=== PATIENT | female | born 1940 | race Caucasian/White ===

== ENCOUNTER → 2016-12-28 | Outpatient (CLI) | payer MEDICARE ==
[~2016-12-28] MED LIST: ACET-687 PO; CEPH250S PO; DOCU-24 PO; ESTR0.5T PO; FAMO-75 PO; FAMO20TA5 PO; POLY17PO5 PO; RIVA10TA PO; VANC750P4 IV; ZOLP10TA PO
[2016-12-28 10:20] LABS: HEMATOCRIT 35.2 % (36.0-46.0); HEMOGLOBIN 11.1 g/dL (12.0-15.0); MEAN CELL HGB 24.1 pg (26-34); MEAN CELL HGB CONCENTRATION 31.5 g/dL (33-37); MEAN CORP VOLUME 76.5 fL (78-100); RED CELL DISTRIBUTION WIDTH 21.7 % (11.5-14.5); WHITE BLOOD CELL 8.9 10^3/uL (4.5-11.0)
== END | disposition home or self-care (01) ==
LOC: LAB 09:46
PROVIDERS: ATTEND Physician Assistant
DX: M25.561 Pain in right knee (principal); L53.9 Erythematous condition, unspecified
CPT/HCPCS: 36415; 85027; 85651; 86140

== ENCOUNTER → 2017-01-31 | Outpatient (CLI) | payer MEDICARE | END | disposition home or self-care (01) | LOC: RAD 11:58 | PROVIDERS: ATTEND Orthopaedic Surgery | DX: M25.461 Effusion, right knee (principal) | CPT/HCPCS: 87070; 87075 ==

== ENCOUNTER 2018-04-02 07:40 | Emergency (ER) | payer MEDICARE ==
[~2018-04-02] VITALS: Ht 170.2 cm; Wt 66.7 kg
[~2018-04-02 07:40] MED LIST changes: +DOCU-123 PO; -DOCU-24 PO; -VANC750P4 IV; +VANC750P6 IV
[2018-04-02 08:18] VITALS: BP 134/74
[2018-04-02 08:25] LABS: BASOPHIL % 0.5 % (0.0-0.2); EOSINOPHIL # 0.3 10^3/uL (0.0-0.2); EOSINOPHIL % 3.6 % (0.0-5.0); HEMOGLOBIN 12.5 g/dL (12.0-15.0); LYMPHOCYTES # 1.4 10^3/uL (1.0-4.8); LYMPHOCYTES % 18.5 % (24.0-44.0); MEAN CELL HGB 29.8 pg (26-34); MEAN CELL HGB CONCENTRATION 32.9 g/dL (33-37); MEAN CORP VOLUME 90.7 fL (78-100); MONOCYTES # 0.5 10^3/uL (0.3-0.8); MONOCYTES % 7.4 % (5.0-12.0); NEUTROPHIL # 5.1 10^3/uL (1.8-7.7); NEUTROPHILS % 69.9 % (41.0-85.0); RED CELL DISTRIBUTION WIDTH 14.1 % (11.5-14.5); WHITE BLOOD CELL 7.3 10^3/uL (4.5-11.0)
--- NOTE | 2018-04-02 08:32 | PCM.EKG ---
[facility] Test Date: 2018-04-02 Test Time: 08:35:36 Pat Name: RICHARD DÍAZ Department: Room: Gender: F Rough Rounder Machine: RT : 1940 Requested By: CLINTON MORAES Order Number: [id number] Reading MD: Clinton MORAES Measurements Intervals [place] Rate: 84 P: 78 MI: 188 QRS: 71 QRSD: 84 T: 72 QT: 392 QTc: 463 Interpretive Statements Sinus rhythm with premature supraventricular complexes Voltage criteria for left ventricular hypertrophy Abnormal ECG No previous ECG available for comparison Electronically Signed On 04-02-2018 21:27:45 CDT by Clinton MORAES Please click the below link to view image of tracing.
[2018-04-02 08:41] LABS: CALCIUM 9.2 mg/dL (8.4-10.5); CARBON DIOXIDE 30.6 mmol/L (20.0-32)
[2018-04-02 09:10] VITALS: BP 133/74
--- NOTE | 2018-04-02 09:28 | ER.PDOC ---
General Chief Complaint: General Complaint Stated Complaint: STOMACH ISSUES TRAVEL OUT OF US: No Time seen by MD: 09:26 Source: patient Exam Limitations: no limitations History of Present Illness Initial Comments No bowel movement for 3 days, feels constipated. Severity: moderate Associated Symptoms: denies symptoms Allergies: Coded Allergies: No Known Allergies (Unverified , 10/06/15) Home Meds Reported Medications Vancomycin/0.9 % Sod Chloride (Vanco 750 mg/250 ml-0.9% NaCl) 750 Mg/250 Ml Plast..bag, 750 MG IV BID 09/05/16 Famotidine (PEPCID) 20 Mg Tablet, 1 TAB PO BID for ANTACID, #60 TAB 3 Refills 12/20/15 Acetaminophen With Codeine (TYLENOL WITH CODEINE #4 TABLET) 1 Each Tablet, 1 TAB PO Q6HR PRN for PAIN, #30 TAB 2 Refills 11/12/15 Past Medical History Medical History: hypertension Surgical History: knee LMP (females 10-50): postmenopause Social History Smoking: non-smoker Alcohol Use: none Drug Use: none Review of Systems Constitutional: no symptoms reported EENTM: no symptoms reported Respiratory: no symptoms reported Cardiovascular: no symptoms reported Gastrointestinal: see HPI Genitourinary: no symptoms reported All Other Systems: Reviewed and Negative Physical Exam General Appearance: No Apparent Distress, WD/WN EENT: eyes nml inspection Neck: Non-Tender, Full Range of Motion, Supple, Normal Inspection Respiratory: chest non-tender, lungs clear, normal breath sounds, no respiratory distress CVS: reg rate & rhythm, no murmur, no gallop, pulses nml, nml capillary refill Gastrointestinal: Normal Bowel Sounds, No Organomegaly, No Pulsatile Mass, Non Tender Back: Normal Inspection, No CVA Tenderness Extremities: Normal Range of Motion Neurologic/Psychiatric: 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 hand II-XII NML as Tested Skin: Normal Color Results/Orders Results/Orders Laboratory Tests Test 04/02/18 08:20 White Blood Count 7.3 10^3/uL (4.5-11.0) Red Blood Count 4.19 10^6/uL (4.00-5.20) Hemoglobin 12.5 g/dL (12.0-15.0) Hematocrit 38.0 % (36.0-46.0) Mean Corpuscular Volume 90.7 fL (78-100) Mean Corpuscular Hemoglobin 29.8 pg (26-34) Mean Corpuscular Hemoglobin Concent 32.9 g/dL (33-37) Red Cell Distribution Width 14.1 % (11.5-14.5) Platelet Count 291 10^3/uL (150-400) Mean Platelet Volume 10.0 fL (7.8-11.0) Neutrophils (%) (Auto) 69.9 % (41.0-85.0) Lymphocytes (%) (Auto) 18.5 % (24.0-44.0) Monocytes (%) (Auto) 7.4 % (5.0-12.0) Neutrophils # (Auto) 5.1 10^3/uL (1.8-7.7) Lymphocytes # (Auto) 1.4 10^3/uL (1.0-4.8) Monocytes # (Auto) 0.5 10^3/uL (0.3-0.8) Absolute Immature Granulocyte (auto 0.01 10^3 u/L (0-2) Eosinophils % 3.6 % (0.0-5.0) Basophils % 0.5 % (0.0-0.2) Basophils # 0.0 10^3/uL (0.0-0.1) Eosinophil Count 0.3 10^3/uL (0.0-0.2) Prothrombin Time 11.6 SEC (9.8-11.9) Prothrombin Time INR (Non-Therap) 1.2 Activated Partial Thromboplast Time 33.1 SEC (24.67-30.72) Sodium Level 139 mmol/L (132-145) Potassium Level 4.5 mmol/L (3.6-5.2) Chloride Level 103.0 mmol/L (96-109) Carbon Dioxide Level 30.6 mmol/L (20.0-32) Anion Gap 9.9 Blood Urea Nitrogen 11 mg/dL (7-18) Creatinine 0.93 mg/dL (0.59-1.40) Estimated GFR () 70.6 (>/=60) BUN/Creatinine Ratio 11.0 Glucose Level 158 mg/dL (70-110) Calcium Level 9.2 mg/dL (8.4-10.5) Total Bilirubin 0.6 mg/dL (0.2-1.0) Aspartate Amino Transf (AST/SGOT) 17 U/L (0-35) Alanine Aminotransferase (ALT/SGPT) 9 U/L (12-78) Alkaline Phosphatase 114 U/L (50-136) Total Protein 8.0 g/dL (6.4-8.2) Albumin 3.1 g/dL (3.4-5.0) Globulin 4.9 Amylase Level 30 U/L (25-115) Lipase 61 U/L (114-286) Percent Immature Gran (Cell Imm) 0.10 % (0.00-0.50) Helicobacter pylori Screen POSITIVE (NEGATIVE) Progress Progress X rays abdomen . There is no evidence of bowel obstruction or free air. 2. Constipation. 3. Limited visualization of the right hip. Question of right hip fracture. Recommend formal evaluation. 4. Possible right pleural effusion. Departure Time of Disposition: 10:56 Disposition: 01 HOME, SELF-CARE Impression: Primary Impression: Constipation Qualified Codes: K59.00 - Constipation, unspecified Condition: Stable Additional Instructions: Magnesium Citrate F/U with your PCP in 2-3 days Duration or Time Spent with Pa: 60 mins CLINTON MORAES MD Apr 02, 2018 09:28
[2018-04-02 10:01] VITALS: BP 180/69
--- NOTE | 2018-04-02 10:14 | DIREP ---
PROCEDURE:XR ABDOMEN 2 VIEWS COMPARISON:None. INDICATIONS:constipation TECHNIQUE:Flat and upright views of the abdomen are provided. FINDINGS: BOWEL GAS PATTERN:No bowel dilatation or wall thickening is identified. Generous amount of stool in the colon. CALCIFICATIONS:No significant calcifications are visible. LUNGS/LUNG BASES:The visible lungs appear clear of focal consolidation. There is blunting of the right costophrenic angle which could be due to a pleural effusion. BONES:No acute changes. Limited views of the hips; however, there appears to be a right hip fracture. No visible bony lesion. Degenerative changes to the spine and pelvis. OTHER:No additional findings. CONCLUSION: 1. There is no evidence of bowel obstruction or free air. 2. Constipation. 3. Limited visualization of the right hip. Question of right hip fracture. Recommend formal evaluation. 4. Possible right pleural effusion. Dictated by: Zane Morales M.D. On 04/02/2018 at 10:10 AM
[2018-04-02 11:15] VITALS: BP 134/74
[2018-04-02 11:21] VITALS: BP 134/74
== END 2018-04-02 11:15 | disposition home or self-care (01) ==
LOC: ER 07:40
DX: K59.00 Constipation, unspecified (principal); B96.81 Helicobacter pylori [H. pylori] as the cause of diseases classified elsewhere; I10 Essential (primary) hypertension; Z98.890 Other specified postprocedural states; Z79.2 Long term (current) use of antibiotics; Z79.1 Long term (current) use of non-steroidal anti-inflammatories (NSAID); Z79.899 Other long term (current) drug therapy
CPT/HCPCS: 36415; 74019; 80053; 82150; 83690; 85025; 85610; 85730; 86677; 93005; 99285

== ENCOUNTER 2018-05-27 16:32 | Inpatient (IN) | payer MEDICARE ==
[~2018-05-27] VITALS: Ht 165.1 cm; Wt 53.5 kg
[2018-05-27] MEDS ORDERED: LACTATED RINGERS 1,000 ML ONE (16:59)
[2018-05-27 17:37] LABS: MEAN CELL HGB 28.6 pg (26-34); MEAN CELL HGB CONCENTRATION 31.8 g/dL (33-37); MEAN CORP VOLUME 89.8 fL (78-100); MEAN PLATELET VOLUME 9.6 fL (7.8-11.0); RED CELL DISTRIBUTION WIDTH 14.1 % (11.5-14.5); WHITE BLOOD CELL 12.6 10^3/uL (4.5-11.0)
[2018-05-27 17:42] VITALS: BP 132/72
[2018-05-27 17:53] LABS: CALCIUM 9.5 mg/dL (8.4-10.5); CARBON DIOXIDE 29.8 mmol/L (20.0-32)
--- NOTE | 2018-05-27 18:14 | NUR ---
ADMISSIONS COMPLETED AT THIS TIME RLE LEFT WRAPPED DUE TO DR. MORAN DRAINING KNEE AND WRAPPING PRIOR TO ADMISSION
[2018-05-27] MEDS: LACTATED RINGERS 1,000 ML IV SCH (18:40)
[2018-05-27] MEDS ORDERED: AMBIEN PO PRN (19:00)
[2018-05-27] MEDS ORDERED: ULTRAM PO PRN (19:00)
[2018-05-27] MEDS ORDERED: LACTATED RINGERS 1,000 ML IV SCH (19:00)
--- NOTE | 2018-05-27 19:13 | HPH ---
ADMIT DATE: 05/27/2018 CHIEF COMPLAINT: Painful right knee. HISTORY OF PRESENT ILLNESS: The patient is a 77-year-old female who has been complaining of pain and swelling about the right knee over the last 5-7 days. The patient had a total knee arthroplasty several years ago that subsequently got infected. The patient has been living with the infection on basically suppressive antibiotic therapy and was doing well until several months ago when she just stopped taking her antibiotics on her own. The patient denies any fever or chills. The patient's knee has gotten red and swollen over the last 5-7 days. In the past, the patient has been on clindamycin. PAST MEDICAL HISTORY: Chronic right knee infection. PAST SURGICAL PROCEDURES: Include hysterectomy, right total knee arthroplasty, right total knee incision and drainage and debridement, and cholecystectomy. FAMILY HISTORY: The patient's family history is unknown. ALLERGIES: The patient has no known drug allergies. SOCIAL HISTORY: She lives at home by herself and is normally a household ambulator with a cane. The patient does not smoke or drink. REVIEW OF SYSTEMS: Negative for chest pain, shortness of breath, nausea, vomiting, melena, hematochezia, dysuria, hematuria, fever, chills, or weight loss. PHYSICAL EXAMINATION: GENERAL: Shows that she is 5 feet 4 inches and weighs 115 pounds. HEENT: Within normal limits for her age. CHEST: Clear to auscultation. HEART: Regular rate and rhythm, no murmur. ABDOMEN: Soft, nontender, good bowel sounds. EXTREMITIES: The right knee has a healed anterior incision. She has swelling about the anteromedial portion of her knee with some fluctuance. There is redness extending from the patella down to the distal third of her tibia. She has full extension of the knee in about 30-40 degrees of flexion, good medial and lateral stability. NEUROLOGICAL: She is awake and alert and oriented x 3. IMAGING STUDIES: The patient's x-rays show question of osteomyelitis about the tibial component. ASSESSMENT: Infected right total knee arthroplasty. PLAN: The patient will be admitted for IV antibiotics. The area of flexion was aspirated of about 10 mL of purulent material. We will send this to the lab for Gram stain as well as C and S. The patient will be monitored on a daily basis. I will consult the hospitalist. Braydon Goldberg MD DR: AUNG/kael JOB# [id number]
[2018-05-27] MEDS ORDERED: VANCOMYCIN HCL 1 GM ONE (20:19)
[2018-05-27] MEDS ORDERED: NS 250ML 250 ML IV ONE (20:20)
[2018-05-27] MEDS: ULTRAM PO PRN (20:25)
[2018-05-27] MEDS: VANCOMYCIN HCL 1 GM in NS 250ML 250 ML IV SCH (20:26)
[2018-05-27] MEDS ORDERED: VANCOMYCIN HCL IV SCH (21:00)
[2018-05-27] MEDS ORDERED: NS IV SCH (21:00)
[2018-05-28 01:31] VITALS: BP 149/81
[2018-05-28] MEDS: LACTATED RINGERS 1,000 ML IV SCH ×3 (05:32→22:49)
[2018-05-28 05:47] VITALS: BP 147/81
[2018-05-28 08:35] VITALS: BP 155/91
--- NOTE | 2018-05-28 09:32 | PRM.PN ---
Subjective Subjective Date: May 28, 2018 Time: 09:30 Subjective Pain better this am Afebrile Gram stain = G+ cocci Right leg with less erythema and swelling Cont with Vancomycin Needs PICC line Patient History: Diabetes mellitus G8 BROTHER, , Age:60 years and older No known health problems 32 MOTHER, , Age:78 33 FATHER, , Age:84 G8 BROTHER G8 BROTHER G8 BROTHER, , Age:60 years and older G8 SISTER 19 CHILD 19 CHILD Unknown VTE VTE Risk Total Score: >5 VTE Risk Score VTE Risk: Score 0-1 = Low Risk (Aggressive mobilization; early ambulation; no VTE prophylaxis required) Score 2: Moderate Risk (Intermittent/Pneumatic Compression Device OR Lovenox/Heparin/Coumadin) Score 3-4: High Risk (Intermittent/Pneumatic Compression Device AND Lovenox/Heparin/Coumadin) Score > or =5: Highest Risk (Intermittent/Pneumatic Compression Device AND Lovenox/Heparin/Coumadin) Review of Systems Allergies: Coded Allergies: No Known Allergies (Unverified , 10/06/15) Scheduled PRN Acetaminophen With Codeine (Tylenol With Codeine #4 Tablet), 1 TAB PO Q6HR PRN for PAIN, (Reported) Discontinued Medications Famotidine (Pepcid), 1 TAB PO BID, (Reported) Discontinued Reason: No Longer Taking Vancomycin/0.9 % Sod Chloride (Vanco 750 mg/250 ml-0.9% NaCl), 750 MG IV BID, ( Reported) Discontinued Reason: No Longer Taking Objective Vitals and I/O Vital Sign - Last 24 Hours 05/27/18 05/27/18 05/27/18 05/27/18 17:39 17:42 20:14 20:14 Temp 98.4 98.4 Pulse 87 87 Resp B/P (MAP) 132/72 (92) Pulse Ox 95 95 95 O2 Delivery Room Air Room Air Room Air 05/28/18 05/28/18 05/28/18 05/28/18 01:31 03:44 05:47 08:35 Temp 98.4 97.8 98.0 98.4 97.8 98.0 Pulse 82 93 78 Resp 18 B/P (MAP) 149/81 (103) 147/81 (103) 155/91 (112) Pulse Ox 95 95 95 O2 Delivery Room Air Room Air Room Air Room Air Intake and Output 05/27/18 05/27/18 05/28/18 15:00 23:00 07:00 Intake Total 240 ml Balance 240 ml Course Sepsis Screening Results: Posi: NEGATIVE Sepsis Qualifier/Stage: NO DEFINITE RISK Vitals & review Data Vital Sign - Last 24 Hours 05/27/18 05/27/18 05/27/18 05/27/18 17:39 17:42 20:14 20:14 Temp 98.4 98.4 Pulse 87 87 Resp 18 B/P (MAP) 132/72 (92) Pulse Ox 95 95 95 O2 Delivery Room Air Room Air Room Air 05/28/18 05/28/18 05/28/18 05/28/18 01:31 03:44 05:47 08:35 Temp 98.4 97.8 98.0 98.4 97.8 98.0 Pulse 82 93 78 Resp 18 B/P (MAP) 149/81 (103) 147/81 (103) 155/91 (112) Pulse Ox 95 95 95 O2 Delivery Room Air Room Air Room Air Room Air Intake and Output 05/27/18 05/27/18 05/28/18 15:00 23:00 07:00 Intake Total 240 ml Balance 240 ml Laboratory Tests Test 05/27/18 17:27 White Blood Count 12.6 10^3/uL Red Blood Count 4.20 10^6/uL Hemoglobin 12.0 g/dL Hematocrit 37.7 % Mean Corpuscular Volume 89.8 fL Mean Corpuscular Hemoglobin 28.6 pg Mean Corpuscular Hemoglobin Concent 31.8 g/dL Red Cell Distribution Width 14.1 % Platelet Count 397 10^3/uL Mean Platelet Volume 9.6 fL Erythrocyte Sedimentation Rate 113 mm/hr Sodium Level 137 mmol/L Potassium Level 3.9 mmol/L Chloride Level 98.0 mmol/L Carbon Dioxide Level 29.8 mmol/L Anion Gap 13.1 Blood Urea Nitrogen 13 mg/dL Creatinine 0.83 mg/dL Estimated GFR () 80.4 BUN/Creatinine Ratio 15.0 Glucose Level 159 mg/dL Calcium Level 9.5 mg/dL Total Bilirubin 0.4 mg/dL Aspartate Amino Transf (AST/SGOT) 17 U/L Alanine Aminotransferase (ALT/SGPT) 10 U/L Alkaline Phosphatase 115 U/L C-Reactive Protein 11.66 mg/dL Total Protein 9.0 g/dL Albumin 3.3 g/dL Globulin 5.7 Current Medications Medications (Trade) Dose Ordered Sig/Tara PRN Reason Start Time Stop Time Status Last Admin Docusate Sodium (Colace) 100 mg DAILY 05/28/18 09:00 06/27/18 08:59 Famotidine (Pepcid) 20 mg DAILY 05/28/18 09:00 06/27/18 08:59 Tramadol HCl (Ultram) 50 mg Q6H PRN MILD PAIN 05/27/18 19:00 06/26/18 18:59 Tramadol HCl (Ultram) 100 mg Q6H PRN SEVERE PAIN 05/27/18 19:00 06/26/18 18:59 05/27/18 20:25 Vancomycin HCl 1 gm/Sodium Chloride 250 ml @ 175 mls/hr Q12H 05/27/18 19:00 05/28/18 20:26 05/27/18 20:26 Zolpidem Tartrate (Ambien) 5 mg HS PRN INSOMNIA 05/27/18 19:00 06/26/18 18:59 05/27/18 20:26 BELINDA MORAN MD May 28, 2018 09:32
[2018-05-28] MEDS: COLACE PO SCH (09:55)
[2018-05-28] MEDS: PEPCID PO SCH (09:55)
[2018-05-28] MEDS: VANCOMYCIN HCL 1 GM in NS 250ML 250 ML IV SCH ×2 (09:55→22:51)
--- NOTE | 2018-05-28 10:45 | NUR ---
BEHAVIOR PT YELLING AT NURSE STATING "GO NEXT DOOR AND GET MY THAT PRINCE . I'M FIXING TO RIP OUT THIS IV IF YOU DONT HOOK ME RIGHT NOW. I'M GOING TO GO DOWN THE THE NEXT AND TALK TO THE DOCTOR AND NURSE PRACTITIONER." ATTEMPTED TO REORIENT PT. KIARA. Dmitry TOWNSEND RN NOTIFIED OF BEHAVIOR AND PTS REQUEST FOR ANOTHER NURSE. PTS RIGHT KNEE CLEANSED WITH WOUND CLEANSER AND WRAPPED WITH MARIA LUISA WRAP.
--- NOTE | 2018-05-28 11:28 | NUR ---
REPORT REPORT GIVEN TO Orlando CHOU LVN AND RELINQUISHED CARE
--- NOTE | 2018-05-28 11:30 | NUR ---
REPORT RECEIVED REPORT FROM JIMBO BLANKENSHIP. ASSUMED CARE FOR PATIENT AT THIS TIME.
[2018-05-28 11:46] VITALS: BP 138/68
--- NOTE | 2018-05-28 15:00 | NUR ---
DISCHARGE PLAN CM VISITED WITH PATIENT REGARDING DISCHARGE PLAN AND NEEDS. PATIENT LIVES AT HOME WITH ALONE. SHE IS FAIRLY INDEPENDENT AND USES A WALKER FOR AMBULATING. 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 CHOICE LETTER PRESENTED, SIGNED, AND PLACED IN PATIENT'S CHART. PATIENT DENIES NEED FOR ANY ADDITIONAL RESOURCES AT THIS TIME. CLINICAL INFORMATION FAXED TO [facility]. DWAINE PICHARDO NOTIFIED OF REFERRAL. CM DEPT WILL CONTINUE TO MONITOR DISCHARGE NEEDS.
[2018-05-28 17:23] VITALS: BP 157/65
--- NOTE | 2018-05-28 18:09 | PRM.CONS ---
Consultation History of Present Illness History of Patient Comments Patient has no new complaints today. She was a little confused and talkative. 77-year-old female that was admitted to orthopedic service because of right knee infection. Patient had a total knee arthroplasty several years ago subsequently got infected. She had been on clindamycin for suppressive antibiotic therapy for some time but recently stopped taking the antibiotic and had an escalation in the infection of the knee. She presented to orthopedic service and was admitted. She is currently on antibiotics while in the swelling in the knees being monitored. During my encounter today with the patient, patient's son was present, and so was patient's [id number]. Patient was a little talkative, may be confused. Son states she has dementia and gets confused sometimes. She takes temazepam 25 mg at bedtime at home. Allergies: No known drug allergies Past medical history: Chronic right knee infection Past surgical history: Hysterectomy Right total knee arthroplasty Right total knee slenderness and debridement Cholecystectomy Family and social history: Patient lives at home alone. Does not smoke Does not drink. Objective Vitals and I/O Vital Sign - Last 24 Hours 05/27/18 05/27/18 05/28/18 05/28/18 20:14 20:14 01:31 03:44 Temp 98.4 98.4 Pulse 87 82 Resp 18 18 18 B/P (MAP) 149/81 (103) Pulse Ox 95 95 95 O2 Delivery Room Air Room Air Room Air 05/28/18 05/28/18 05/28/18 05/28/18 05:47 08:35 11:17 11:24 Temp 97.8 98.0 97.8 98.0 Pulse 93 78 92 Resp 18 18 16 B/P (MAP) 147/81 (103) 155/91 (112) Pulse Ox 95 95 98 O2 Delivery Room Air Room Air Room Air Room Air FiO2 21 05/28/18 05/28/18 11:46 17:23 Temp 98.6 99.4 98.6 99.4 Pulse 78 95 Resp 18 18 B/P (MAP) 138/68 (91) 157/65 (95) Pulse Ox 98 97 O2 Delivery Room Air Room Air Intake and Output 05/27/18 05/27/18 05/28/18 15:00 23:00 07:00 Intake Total 240 ml Balance 240 ml Current Medications Medications (Trade) Dose Ordered Sig/Tara Route PRN Reason Start Time Stop Time Status Last Admin Dose Admin Vancomycin HCl 0.75 gm/Sodium Chloride 250 ml @ 175 mls/hr Q12HR IV 05/27/18 21:00 05/27/18 21:00 DC Tramadol HCl (Ultram) 50 mg Q6H PRN PO MILD PAIN 05/27/18 19:00 06/26/18 18:59 Tramadol HCl (Ultram) 100 mg Q6H PRN PO SEVERE PAIN 05/27/18 19:00 06/26/18 18:59 05/27/18 20:25 Zolpidem Tartrate (Ambien) 5 mg HS PRN PO INSOMNIA 05/27/18 19:00 06/26/18 18:59 05/27/18 20:26 Docusate Sodium (Colace) 100 mg DAILY PO 05/28/18 09:00 06/27/18 08:59 05/28/18 09:55 Famotidine (Pepcid) 20 mg DAILY PO 05/28/18 09:00 06/27/18 08:59 05/28/18 09:55 Vancomycin HCl 1 gm/Sodium Chloride 250 ml @ 175 mls/hr Q12H IV 05/27/18 19:00 05/28/18 20:26 05/28/18 09:55 Vancomycin HCl 1 ml @ ud STK-MED ONCE .ROUTE 05/27/18 20:19 05/27/18 20:21 DC Sodium Chloride 250 ml @ ud STK-MED ONCE IV 05/27/18 20:20 05/27/18 20:22 DC General: Alert, No acute distress, Other (confused) HEENT: Atraumatic, PERRLA Neck: Supple, No thyromegaly Lungs: Clear to auscultation, Normal air movement Heart: Regular rate, Normal S1, Normal S2 Abdomen: Normal bowel sounds, Soft Extremities: Other (right knee is wrapped with Black bandage by orthopedics. 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 TESTER : 1940 BED: DIS : STATUS: REG REF TLOC: SPEC #: [id number] BECKA: 07/28/16 STATUS: COMP REQ #: [id number] RECD: 07/28/[address]: BEBO CANALES NP SOURCE: OTHER ENTR: 07/28/[address]: RAY MOBLEY MD SPDC: OTHER ORDERED: WC & GS Procedure Result GRAM STAIN Final WHITE BLOOD CELLS RARE GRAM POSITIVE COCCI RARE EPITHELIAL CELLS FEW WOUND CULTURE Final Organism 1 STAPHYLOCOCCUS EPIDERMIDIS PRELIMINARY REPORT NO GROWTH AT 14 HOURS 2ND PRELIMINARY REPORT GRAM POSITIVE COCCI STAPH LIKE RARE NUMBERS ONLY FROM THIO AT 36 HOURS FINAL REPORT STAPH EPIDERMIDIS As of 08/01/16 1449: Positive culture for STAPHYLOCOCCUS EPIDERMIDIS and patient is not on any antibiotic therapy. CONTINUED ON NEXT PAGE LAB FINAL SITE ID: [facility] RUN DATE: 08/18/16 [facility] *LIVE* PAGE 2 RUN TIME: 1625 Specimen Inquiry LAB FINAL SITE ID: [facility] SPEC: [id number] PATIENT: RICHARD DÍAZ [id number] ( Continued) Procedure Result WOUND CULTURE Final (continued) S EPIDERMI M.I.C. RX --------- --- * AMOXACILLIN/CLAVULANATE <=4/2 R * AMPICILLIN 8 R * AMPICILLIN/SULBACTAM <=8/4 R * CEFTRIAXONE <=8 R * CIPROFLOXACIN <=1 S * CLINDAMYCIN <=0.5 S * ERYTHROMYCIN >4 R * GENTAMICIN <=4 S * LEVOFLOXACIN <=1 S * MOXIFLOXACIN <=0.5 S * OXACILLIN >2 R * PENICILLIN >8 R * RIFAMPIN <=1 S * TETRACYCLINE <=4 S * TRIMETHOPRIM/SULFAMETHOXAZOLE >2/38 R * VANCOMYCIN 2 S Medication Reconciliation Scheduled PRN Acetaminophen With Codeine (Tylenol With Codeine #4 Tablet), 1 TAB PO Q6HR PRN for PAIN, (Reported) Discontinued Medications Famotidine (Pepcid), 1 TAB PO BID, (Reported) Discontinued Reason: No Longer Taking Vancomycin/0.9 % Sod Chloride (Vanco 750 mg/250 ml-0.9% NaCl), 750 MG IV BID, ( Reported) Discontinued Reason: No Longer Taking Subjective Subjective Date: May 28, 2018 Time: 18:07 Patient History: Diabetes mellitus G8 BROTHER, , Age:60 years and older No known health problems 32 MOTHER, , Age:78 33 FATHER, , Age:84 G8 BROTHER G8 BROTHER G8 BROTHER, , Age:60 years and older G8 SISTER 19 CHILD 19 CHILD Unknown Plan Plan assessment: Infected right knee arthroplasty Moderate dementia Insomnia GERD plan: I agree with vancomycin. Wound culture from 08/2016 as above caused by staph epidermidis.(MRSE) When necessary pain medications The son tells me that patient does well with temazepam 25 mg at bedtime. Consider changing Ambien to temazepam. Start patient on nocturnal Zyprexa also. GI prophylaxis with famotidine DVT prophylaxis LAYNE REMY DO May 28, 2018 18:09
--- NOTE | 2018-05-28 18:56 | NUR ---
REPORT REPORT RECEIVED FROM DAY SHIFT. ASSUMED CARE OF PATIENT.
--- NOTE | 2018-05-28 18:56 | NUR ---
REPORT REPORT GIVEN TO JIMBO MADRID. RELINQUISHED CARE FOR PATIENT AT THIS TIME.
[2018-05-28 18:57] LABS: BILIRUBIN,URINE NEGATIVE (NEGATIVE); UROBILINOGEN,URINE NORMAL (NEGATIVE)
[2018-05-28 18:58] LABS: APPEARANCE,URINE HAZY (CLEAR); UA COLOR STRAW (YELLOW)
[2018-05-28 20:30] VITALS: BP 149/75
--- NOTE | 2018-05-28 21:00 | NUR ---
EKG REFUSAL ADVISED BY RT THAT PATIENT HAS REFUSED EKG. PATIENT STATES "I'M OLD AND DON'T WANT THAT EXTRA STUFF."
[2018-05-28] MEDS: ZYPREXA ZYDIS SL SCH (22:49)
--- NOTE | 2018-05-29 01:00 | NUR ---
FALL PATIENT CALLED OUT FOR HELP AND THIS NURSE ENTERED THE ROOM, PATIENT WAS LYING ON THE FLOOR NEXT TO THE BED. PATIENT STATES, "I WAS TRYING TO GET TO THE RESTROOM, BUT MY FEET SLIPPED FROM UNDER ME AND I SLID TO THE FLOOR." PATIENT HAS YELLOW NON SLIP SOCKS ON AND FALL BAND IS INTACT. CALL LIGHT WAS WITHIN REACH; HOWEVER PATIENT HAS DEMENTIA AND ATTEMPTED TO GET UP UNASSISTED. PATIENT HAD BEEN EDUCATED ABOUT USE OF CALL LIGHT FOR ASSISTANCE. REINFORCEMENT NEEDED. VITALS TAKEN AND PATIENT ASSISTED TO BATHROOM AND BACK TO BED. NO S/S OF DISTRESS NOTED AND NO INJURY NOTED. BED IS LOCKED IN LOW POSITION WITH SIDE RAILS UP X2. TABLE AND CALL LIGHT ARE WITHIN REACH AND BED ALARM IS ON. PATIENT DENIES ANY NEEDS AT THIS TIME.
[2018-05-29 01:10] VITALS: BP 129/64
--- NOTE | 2018-05-29 08:00 | NUR ---
Status assisted patient to the bathroom to void.
[2018-05-29 08:09] VITALS: BP 145/64
--- NOTE | 2018-05-29 08:42 | PRM.PN ---
Subjective Subjective Date: May 29, 2018 Time: 08:39 Subjective No complaints this am Afebrile Cultures show no growth so far Still has some erythema on distal leg Cont with IV vanco Patient History: Diabetes mellitus G8 BROTHER, , Age:60 years and older No known health problems 32 MOTHER, , Age:78 33 FATHER, , Age:84 G8 BROTHER G8 BROTHER G8 BROTHER, , Age:60 years and older G8 SISTER 19 CHILD 19 CHILD Unknown VTE VTE Risk Total Score: >5 VTE Risk Score VTE Risk: Score 0-1 = Low Risk (Aggressive mobilization; early ambulation; no VTE prophylaxis required) Score 2: Moderate Risk (Intermittent/Pneumatic Compression Device OR Lovenox/Heparin/Coumadin) Score 3-4: High Risk (Intermittent/Pneumatic Compression Device AND Lovenox/Heparin/Coumadin) Score > or =5: Highest Risk (Intermittent/Pneumatic Compression Device AND Lovenox/Heparin/Coumadin) Review of Systems Allergies: Coded Allergies: No Known Allergies (Unverified , 10/06/15) Scheduled PRN Acetaminophen With Codeine (Tylenol With Codeine #4 Tablet), 1 TAB PO Q6HR PRN for PAIN, (Reported) Discontinued Medications Famotidine (Pepcid), 1 TAB PO BID, (Reported) Discontinued Reason: No Longer Taking Vancomycin/0.9 % Sod Chloride (Vanco 750 mg/250 ml-0.9% NaCl), 750 MG IV BID, ( Reported) Discontinued Reason: No Longer Taking Objective Vitals and I/O Vital Sign - Last 24 Hours 05/28/18 05/28/18 05/28/18 05/28/18 11:17 11:24 11:46 17:23 Temp 98.6 99.4 98.6 99.4 Pulse 92 78 95 Resp B/P (MAP) 138/68 (91) 157/65 (95) Pulse Ox 98 98 97 O2 Delivery Room Air Room Air Room Air Room Air FiO2 21 05/28/18 05/28/18 05/28/18 05/29/18 20:30 20:30 21:30 01:10 Temp 98.7 98.6 98.7 98.6 Pulse 87 95 102 Resp B/P (MAP) 149/75 (99) 129/64 (85) Pulse Ox 99 97 93 O2 Delivery Room Air Room Air Room Air Room Air 05/29/18 08:09 Temp 98.0 98.0 Pulse 90 Resp 18 B/P (MAP) 145/64 (91) Pulse Ox 95 O2 Delivery Room Air Intake and Output 05/28/18 05/28/18 05/29/18 15:00 23:00 07:00 Intake Total 222 ml 240 ml Output Total 900 ml Balance 222 ml -900 ml 240 ml Course Sepsis Screening Results: Posi: NEGATIVE Sepsis Qualifier/Stage: NO DEFINITE RISK Vitals & review Data Vital Sign - Last 24 Hours 05/27/18 05/27/18 05/27/18 05/27/18 17:39 17:42 20:14 20:14 Temp 98.4 98.4 Pulse 87 87 Resp 18 B/P (MAP) 132/72 (92) Pulse Ox 95 95 95 O2 Delivery Room Air Room Air Room Air 05/28/18 05/28/18 05/28/18 05/28/18 01:31 03:44 05:47 08:35 Temp 98.4 97.8 98.0 98.4 97.8 98.0 Pulse 82 93 78 Resp 18 B/P (MAP) 149/81 (103) 147/81 (103) 155/91 (112) Pulse Ox 95 95 95 O2 Delivery Room Air Room Air Room Air Room Air Intake and Output 05/27/18 05/27/18 05/28/18 15:00 23:00 07:00 Intake Total 240 ml Balance 240 ml Laboratory Tests Test 05/27/18 17:27 White Blood Count 12.6 10^3/uL Red Blood Count 4.20 10^6/uL Hemoglobin 12.0 g/dL Hematocrit 37.7 % Mean Corpuscular Volume 89.8 fL Mean Corpuscular Hemoglobin 28.6 pg Mean Corpuscular Hemoglobin Concent 31.8 g/dL Red Cell Distribution Width 14.1 % Platelet Count 397 10^3/uL Mean Platelet Volume 9.6 fL Erythrocyte Sedimentation Rate 113 mm/hr Sodium Level 137 mmol/L Potassium Level 3.9 mmol/L Chloride Level 98.0 mmol/L Carbon Dioxide Level 29.8 mmol/L Anion Gap 13.1 Blood Urea Nitrogen 13 mg/dL Creatinine 0.83 mg/dL Estimated GFR () 80.4 BUN/Creatinine Ratio 15.0 Glucose Level 159 mg/dL Calcium Level 9.5 mg/dL Total Bilirubin 0.4 mg/dL Aspartate Amino Transf (AST/SGOT) 17 U/L Alanine Aminotransferase (ALT/SGPT) 10 U/L Alkaline Phosphatase 115 U/L C-Reactive Protein 11.66 mg/dL Total Protein 9.0 g/dL Albumin 3.3 g/dL Globulin 5.7 Current Medications Medications (Trade) Dose Ordered Sig/Tara PRN Reason Start Time Stop Time Status Last Admin Docusate Sodium (Colace) 100 mg DAILY 05/28/18 09:00 06/27/18 08:59 Famotidine (Pepcid) 20 mg DAILY 05/28/18 09:00 06/27/18 08:59 Tramadol HCl (Ultram) 50 mg Q6H PRN MILD PAIN 05/27/18 19:00 06/26/18 18:59 Tramadol HCl (Ultram) 100 mg Q6H PRN SEVERE PAIN 05/27/18 19:00 06/26/18 18:59 05/27/18 20:25 Vancomycin HCl 1 gm/Sodium Chloride 250 ml @ 175 mls/hr Q12H 05/27/18 19:00 05/28/18 20:26 05/27/18 20:26 Zolpidem Tartrate (Ambien) 5 mg HS PRN INSOMNIA 05/27/18 19:00 06/26/18 18:59 05/27/18 20:26 BELINDA MORAN MD May 29, 2018 08:42
[2018-05-29] MEDS: LACTATED RINGERS 1,000 ML IV SCH ×2 (08:46→21:05)
[2018-05-29] MEDS: COLACE PO SCH (08:46)
[2018-05-29] MEDS: PEPCID PO SCH (08:46)
--- NOTE | 2018-05-29 10:00 | NUR ---
Offered to help patient to the chair to finished breakfast, patient refused and stated,"I just want to go back to sleep and be left alone".
[2018-05-29 12:47] VITALS: BP 148/59
[2018-05-29] MEDS: VANCOMYCIN HCL 1 GM in NS 250ML 250 ML IV SCH (15:42)
--- NOTE | 2018-05-29 16:00 | NUR ---
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 MED SURG NURSING CAN CALL REPORT ANYTIME TO [facility] AND ARRANGE TRANSPORTATION WITH FACILITY. MED SURG CHARGE NURSE Sherri TOWNSEND RN NOTIFIED. NO FURTHER CM OR DISCHARGE NEEDS KNOWN @ THIS TIME.
[2018-05-29 17:20] VITALS: BP 114/44
[2018-05-29 20:30] VITALS: BP 127/50
[2018-05-29] MEDS: ZYPREXA ZYDIS SL SCH (21:05)
[2018-05-30] VITALS (7 sets, daily range): BP systolic 118–160; BP diastolic 55–78
[2018-05-30] MEDS: VANCOMYCIN HCL 1 GM in NS 250ML 250 ML IV SCH ×2 (03:55→16:03)
[2018-05-30 04:52] LABS: BASOPHIL # 0.1 10^3/uL (0.0-0.1); BASOPHIL % 0.5 % (0.0-0.2); EOSINOPHIL # 0.4 10^3/uL (0.0-0.2); HEMOGLOBIN 9.3 g/dL (12.0-15.0); LYMPHOCYTES # 1.1 10^3/uL (1.0-4.8); LYMPHOCYTES % 10.8 % (24.0-44.0); MEAN CELL HGB 28.2 pg (26-34); MEAN CELL HGB CONCENTRATION 31.3 g/dL (33-37); MEAN PLATELET VOLUME 9.5 fL (7.8-11.0); MONOCYTES # 0.9 10^3/uL (0.3-0.8); NEUTROPHIL # 7.4 10^3/uL (1.8-7.7); NEUTROPHILS % 75.4 % (41.0-85.0); RED CELL DISTRIBUTION WIDTH 14.2 % (11.5-14.5); WHITE BLOOD CELL 9.8 10^3/uL (4.5-11.0)
[2018-05-30] MEDS: LACTATED RINGERS 1,000 ML IV SCH ×2 (05:00→16:03)
[2018-05-30] MEDS: COLACE PO SCH ×2 (09:25→10:09)
[2018-05-30] MEDS: PEPCID PO SCH ×2 (09:25→10:09)
[2018-05-30] MEDS: ULTRAM PO PRN ×2 (13:26→20:51)
--- NOTE | 2018-05-30 13:33 | PRM.PN ---
Subjective Subjective Date: May 30, 2018 Time: 13:31 Subjective Pain better Afebrile CRP and sed rate improving Cultures = Staph Epi sensitive to Vanco Will arrange 6 weeks IV vanco Pt does not want surgery Patient History: Diabetes mellitus G8 BROTHER, , Age:60 years and older No known health problems 32 MOTHER, , Age:78 33 FATHER, , Age:84 G8 BROTHER G8 BROTHER G8 BROTHER, , Age:60 years and older G8 SISTER 19 CHILD 19 CHILD Unknown VTE VTE Risk Total Score: >5 VTE Risk Score VTE Risk: Score 0-1 = Low Risk (Aggressive mobilization; early ambulation; no VTE prophylaxis required) Score 2: Moderate Risk (Intermittent/Pneumatic Compression Device OR Lovenox/Heparin/Coumadin) Score 3-4: High Risk (Intermittent/Pneumatic Compression Device AND Lovenox/Heparin/Coumadin) Score > or =5: Highest Risk (Intermittent/Pneumatic Compression Device AND Lovenox/Heparin/Coumadin) Review of Systems Allergies: Coded Allergies: No Known Allergies (Unverified , 10/06/15) Scheduled PRN Acetaminophen With Codeine (Tylenol With Codeine #4 Tablet), 1 TAB PO Q6HR PRN for PAIN, (Reported) Discontinued Medications Famotidine (Pepcid), 1 TAB PO BID, (Reported) Discontinued Reason: No Longer Taking Vancomycin/0.9 % Sod Chloride (Vanco 750 mg/250 ml-0.9% NaCl), 750 MG IV BID, ( Reported) Discontinued Reason: No Longer Taking Objective Vitals and I/O Vital Sign - Last 24 Hours 05/29/18 05/29/18 05/29/18 05/29/18 17:20 20:16 20:30 20:59 Temp 100.0 98.5 100.0 98.5 Pulse 85 82 88 Resp B/P (MAP) 114/44 (67) 127/50 (75) Pulse Ox 96 94 96 O2 Delivery Room Air Room Air Room Air Room Air 05/30/18 05/30/18 05/30/18 05/30/18 00:40 05:11 08:51 09:27 Temp 98.3 98.7 98.2 98.3 98.7 98.2 Pulse 79 84 89 Resp B/P (MAP) 122/55 (77) 128/62 (84) 131/75 (93) Pulse Ox 92 97 92 O2 Delivery Room Air Room Air Room Air Room Air 05/30/18 05/30/18 10:03 11:47 Temp 98.5 98.5 Pulse 89 90 Resp 18 18 B/P (MAP) 118/66 (83) Pulse Ox 92 95 O2 Delivery Room Air Room Air FiO2 21 Intake and Output 05/29/18 05/29/18 05/30/18 15:00 23:00 07:00 Intake Total 240 ml 360 ml Balance 240 ml 360 ml Course Sepsis Screening Results: Posi: NEGATIVE Sepsis Qualifier/Stage: NO DEFINITE RISK Vitals & review Data Vital Sign - Last 24 Hours 05/27/18 05/27/18 05/27/18 05/27/18 17:39 17:42 20:14 20:14 Temp 98.4 98.4 Pulse 87 87 Resp 18 18 B/P (MAP) 132/72 (92) Pulse Ox 95 95 95 O2 Delivery Room Air Room Air Room Air 05/28/18 05/28/18 05/28/18 05/28/18 01:31 03:44 05:47 08:35 Temp 98.4 97.8 98.0 98.4 97.8 98.0 Pulse 82 93 78 Resp 18 18 18 B/P (MAP) 149/81 (103) 147/81 (103) 155/91 (112) Pulse Ox 95 95 95 O2 Delivery Room Air Room Air Room Air Room Air Intake and Output 05/27/18 05/27/18 05/28/18 15:00 23:00 07:00 Intake Total 240 ml Balance 240 ml Laboratory Tests Test 05/27/18 17:27 White Blood Count 12.6 10^3/uL Red Blood Count 4.20 10^6/uL Hemoglobin 12.0 g/dL Hematocrit 37.7 % Mean Corpuscular Volume 89.8 fL Mean Corpuscular Hemoglobin 28.6 pg Mean Corpuscular Hemoglobin Concent 31.8 g/dL Red Cell Distribution Width 14.1 % Platelet Count 397 10^3/uL Mean Platelet Volume 9.6 fL Erythrocyte Sedimentation Rate 113 mm/hr Sodium Level 137 mmol/L Potassium Level 3.9 mmol/L Chloride Level 98.0 mmol/L Carbon Dioxide Level 29.8 mmol/L Anion Gap 13.1 Blood Urea Nitrogen 13 mg/dL Creatinine 0.83 mg/dL Estimated GFR () 80.4 BUN/Creatinine Ratio 15.0 Glucose Level 159 mg/dL Calcium Level 9.5 mg/dL Total Bilirubin 0.4 mg/dL Aspartate Amino Transf (AST/SGOT) 17 U/L Alanine Aminotransferase (ALT/SGPT) 10 U/L Alkaline Phosphatase 115 U/L C-Reactive Protein 11.66 mg/dL Total Protein 9.0 g/dL Albumin 3.3 g/dL Globulin 5.7 Current Medications Medications (Trade) Dose Ordered Sig/Tara PRN Reason Start Time Stop Time Status Last Admin Docusate Sodium (Colace) 100 mg DAILY 05/28/18 09:00 06/27/18 08:59 Famotidine (Pepcid) 20 mg DAILY 05/28/18 09:00 06/27/18 08:59 Tramadol HCl (Ultram) 50 mg Q6H PRN MILD PAIN 05/27/18 19:00 06/26/18 18:59 Tramadol HCl (Ultram) 100 mg Q6H PRN SEVERE PAIN 05/27/18 19:00 06/26/18 18:59 05/27/18 20:25 Vancomycin HCl 1 gm/Sodium Chloride 250 ml @ 175 mls/hr Q12H 05/27/18 19:00 05/28/18 20:26 05/27/18 20:26 Zolpidem Tartrate (Ambien) 5 mg HS PRN INSOMNIA 05/27/18 19:00 06/26/18 18:59 05/27/18 20:26 BELINDA MORAN MD May 30, 2018 13:33
--- NOTE | 2018-05-30 15:38 | NUR ---
STATUS PT RESTING IN BED AT THIS TIME. PT HAS NOT C/O PAIN SINCE THE PREVIOUS ADMIN OF TRAMADOL. WILL CONT TO MONITOR PT AT THIS TIME. CALL LIGHT IN REACH
--- NOTE | 2018-05-30 16:37 | PRM.PN ---
Subjective Subjective Date: May 30, 2018 Time: 16:35 Subjective Patient is seen in the lan laying down in bed quietly in no apparent distress today. She appears to have improved regarding delirium following starting Zyprexa Zydis. Cont to be on vancomycin and is planned for protracted IV vancomycin when she goes home. Patient has apparently refused repeat surgery. She complains of constipation Patient History: Diabetes mellitus G8 BROTHER, , Age:60 years and older No known health problems 32 MOTHER, , Age:78 33 FATHER, , Age:84 G8 BROTHER G8 BROTHER G8 BROTHER, , Age:60 years and older G8 SISTER 19 CHILD 19 CHILD Unknown Objective Vitals and I/O Vital Sign - Last 24 Hours 05/29/18 05/29/18 05/29/18 05/29/18 17:20 20:16 20:30 20:59 Temp 100.0 98.5 100.0 98.5 Pulse 85 82 88 Resp 18 18 18 B/P (MAP) 114/44 (67) 127/50 (75) Pulse Ox 96 94 96 O2 Delivery Room Air Room Air Room Air Room Air 05/30/18 05/30/18 05/30/18 05/30/18 00:40 05:11 08:51 09:27 Temp 98.3 98.7 98.2 98.3 98.7 98.2 Pulse 79 84 89 Resp 18 18 18 B/P (MAP) 122/55 (77) 128/62 (84) 131/75 (93) Pulse Ox 92 97 92 O2 Delivery Room Air Room Air Room Air Room Air 05/30/18 05/30/18 10:03 11:47 Temp 98.5 98.5 Pulse 89 90 Resp 18 B/P (MAP) 118/66 (83) Pulse Ox 92 95 O2 Delivery Room Air Room Air FiO2 21 Intake and Output 05/29/18 05/29/18 05/30/18 15:00 23:00 07:00 Intake Total 240 ml 360 ml Balance 240 ml 360 ml Laboratory Tests Test 05/30/18 04:30 05/30/18 11:28 05/30/18 14:52 White Blood Count 9.8 10^3/uL Red Blood Count 3.30 10^6/uL Hemoglobin 9.3 g/dL Hematocrit 29.7 % Mean Corpuscular Volume 90.0 fL Mean Corpuscular Hemoglobin 28.2 pg Mean Corpuscular Hemoglobin Concent 31.3 g/dL Red Cell Distribution Width 14.2 % Platelet Count 258 10^3/uL Mean Platelet Volume 9.5 fL Neutrophils (%) (Auto) 75.4 % Lymphocytes (%) (Auto) 10.8 % Monocytes (%) (Auto) 9.0 % Neutrophils # (Auto) 7.4 10^3/uL Lymphocytes # (Auto) 1.1 10^3/uL Monocytes # (Auto) 0.9 10^3/uL Absolute Immature Granulocyte (auto 0.03 10^3 u/L Eosinophils % 4.0 % Basophils % 0.5 % Basophils # 0.1 10^3/uL Erythrocyte Sedimentation Rate 80 mm/hr Eosinophil Count 0.4 10^3/uL C-Reactive Protein 9.74 mg/dL Percent Immature Gran (Cell Imm) 0.30 % Vancomycin Level Trough 22.7 ug/mL 19.9 ug/mL Current Medications Medications (Trade) Dose Ordered Sig/Tara Route PRN Reason Start Time Stop Time Status Last Admin Dose Admin Vancomycin HCl 0.75 gm/Sodium Chloride 250 ml @ 175 mls/hr Q12HR IV 05/27/18 21:00 05/27/18 21:00 DC Tramadol HCl (Ultram) 50 mg Q6H PRN PO MILD PAIN 05/27/18 19:00 06/26/18 18:59 05/29/18 21:05 Tramadol HCl (Ultram) 100 mg Q6H PRN PO SEVERE PAIN 05/27/18 19:00 06/26/18 18:59 05/30/18 13:26 Zolpidem Tartrate (Ambien) 5 mg HS PRN PO INSOMNIA 05/27/18 19:00 06/26/18 18:59 05/27/18 20:26 Docusate Sodium (Colace) 100 mg DAILY PO 05/28/18 09:00 06/27/18 08:59 05/30/18 10:09 Famotidine (Pepcid) 20 mg DAILY PO 05/28/18 09:00 06/27/18 08:59 05/30/18 10:09 Vancomycin HCl 1 gm/Sodium Chloride 250 ml @ 175 mls/hr Q12H IV 05/27/18 19:00 05/28/18 20:26 DC 11/27/18 22:51 Vancomycin HCl 1 ml @ ud STK-MED ONCE .ROUTE 05/27/18 20:19 05/27/18 20:21 DC Sodium Chloride 250 ml @ ud STK-MED ONCE IV 05/27/18 20:20 05/27/18 20:22 DC Olanzapine (Zyprexa Zydis) 5 mg HS SL 05/28/18 21:00 06/27/18 20:59 05/29/18 21:05 Vancomycin HCl 1 gm/Sodium Chloride 250 ml @ 175 mls/hr Q12H IV 05/29/18 15:30 06/28/18 15:29 05/30/18 16:03 General: Alert, Oriented X3 HEENT: Atraumatic, PERRLA Neck: Supple, No JVD Lungs: Clear to auscultation, Normal air movement Heart: Regular rate, Normal S1, Normal S2 Abdomen: Normal bowel sounds, No tenderness Extremities: Other (Cellulitic changes around the knee improving) Skin: No rashes, No breakdown Neuro: Normal speech, Cranial nerves 3-12 NL Medication Reconciliation Scheduled PRN Acetaminophen With Codeine (Tylenol With Codeine #4 Tablet), 1 TAB PO Q6HR PRN for PAIN, (Reported) Discontinued Medications Famotidine (Pepcid), 1 TAB PO BID, (Reported) Discontinued Reason: No Longer Taking Vancomycin/0.9 % Sod Chloride (Vanco 750 mg/250 ml-0.9% NaCl), 750 MG IV BID, ( Reported) Discontinued Reason: No Longer Taking Assessment/Plan Assessment/Plan Plan Assessment: Infected right knee arthroplasty: Improving Moderate dementia Insomnia GERD Constipation Plan: Cont Vancomycin. Wound culture from 08/2016 as above caused by staph epidermidis.(MRSE) CRP and sedimentation rates are improving. Patient likely going home on IV antibiotics for 6 weeks. Patient refused surgery. Cont when necessary pain medications Cont nocturnal Zyprexa. GI prophylaxis with famotidine DVT prophylaxis LAYNE REMY DO May 30, 2018 16:37
--- NOTE | 2018-05-30 18:51 | NUR ---
REPORT REPORT GIVEN TO ONCOMING SHIFT
--- NOTE | 2018-05-30 18:52 | NUR ---
report received report from offgoing shift
[2018-05-30] MEDS: ZYPREXA ZYDIS SL SCH (20:51)
[2018-05-31] MEDS: LACTATED RINGERS 1,000 ML IV SCH (01:01)
[2018-05-31] MEDS: VANCOMYCIN HCL 1 GM in NS 250ML 250 ML IV SCH (03:22)
[2018-05-31 03:32] VITALS: BP 138/71
--- NOTE | 2018-05-31 06:56 | NUR ---
report report given to o/c shift
[2018-05-31 08:16] VITALS: BP 138/66
--- NOTE | 2018-05-31 09:34 | PRM.PN ---
Subjective Subjective Date: May 31, 2018 Time: 09:31 Subjective Pain better Ambulatory with Walker Afebrile Cultures show Staph Epi sensitive to Vanco Leg with less erythema and swelling Will place PICC line today for 6 weeks of vanco DC to NH Patient History: Diabetes mellitus G8 BROTHER, , Age:60 years and older No known health problems 32 MOTHER, , Age:78 33 FATHER, , Age:84 G8 BROTHER G8 BROTHER G8 BROTHER, , Age:60 years and older G8 SISTER 19 CHILD 19 CHILD Unknown VTE VTE Risk Total Score: >5 VTE Risk Score VTE Risk: Score 0-1 = Low Risk (Aggressive mobilization; early ambulation; no VTE prophylaxis required) Score 2: Moderate Risk (Intermittent/Pneumatic Compression Device OR Lovenox/Heparin/Coumadin) Score 3-4: High Risk (Intermittent/Pneumatic Compression Device AND Lovenox/Heparin/Coumadin) Score > or =5: Highest Risk (Intermittent/Pneumatic Compression Device AND Lovenox/Heparin/Coumadin) Review of Systems Allergies: Coded Allergies: No Known Allergies (Unverified , 10/06/15) Scheduled PRN Acetaminophen With Codeine (Tylenol With Codeine #4 Tablet), 1 TAB PO Q6HR PRN for PAIN, (Reported) Discontinued Medications Famotidine (Pepcid), 1 TAB PO BID, (Reported) Discontinued Reason: No Longer Taking Vancomycin/0.9 % Sod Chloride (Vanco 750 mg/250 ml-0.9% NaCl), 750 MG IV BID, ( Reported) Discontinued Reason: No Longer Taking Objective Vitals and I/O Vital Sign - Last 24 Hours 05/30/18 05/30/18 05/30/18 05/30/18 10:03 11:47 16:48 21:06 Temp 98.5 99.0 99.0 98.5 99.0 99.0 Pulse 89 90 82 84 Resp 18 18 18 20 B/P (MAP) 118/66 (83) 151/68 (95) 136/78 (97) Pulse Ox 92 95 91 94 O2 Delivery Room Air Room Air Room Air Room Air FiO2 21 05/30/18 05/30/18 05/30/18 05/30/18 21:36 21:37 23:03 23:55 Temp 99.2 99.2 Pulse 100 83 Resp 18 20 20 B/P (MAP) 160/78 (105) Pulse Ox 96 94 94 O2 Delivery Room Air Room Air Room Air FiO2 21 05/31/18 05/31/18 05/31/18 05/31/18 03:32 07:34 08:16 09:08 Temp 98.6 98.4 98.6 98.4 Pulse 81 80 94 Resp 18 18 16 B/P (MAP) 138/71 (93) 138/66 (90) Pulse Ox 92 89 92 O2 Delivery Room Air Room Air Room Air Room Air FiO2 21 Intake and Output 05/30/18 05/30/18 05/31/18 15:00 23:00 07:00 Intake Total 1200 ml 902 ml Balance 1200 ml 902 ml Course Sepsis Screening Results: Posi: NEGATIVE Sepsis Qualifier/Stage: NO DEFINITE RISK Vitals & review Data Vital Sign - Last 24 Hours 05/27/18 05/27/18 05/27/18 05/27/18 17:39 17:42 20:14 20:14 Temp 98.4 98.4 Pulse 87 87 Resp 18 B/P (MAP) 132/72 (92) Pulse Ox 95 95 95 O2 Delivery Room Air Room Air Room Air 05/28/18 05/28/18 05/28/18 05/28/18 01:31 03:44 05:47 08:35 Temp 98.4 97.8 98.0 98.4 97.8 98.0 Pulse 82 93 78 Resp 18 B/P (MAP) 149/81 (103) 147/81 (103) 155/91 (112) Pulse Ox 95 95 95 O2 Delivery Room Air Room Air Room Air Room Air Intake and Output 05/27/18 05/27/18 05/28/18 15:00 23:00 07:00 Intake Total 240 ml Balance 240 ml Laboratory Tests Test 05/27/18 17:27 White Blood Count 12.6 10^3/uL Red Blood Count 4.20 10^6/uL Hemoglobin 12.0 g/dL Hematocrit 37.7 % Mean Corpuscular Volume 89.8 fL Mean Corpuscular Hemoglobin 28.6 pg Mean Corpuscular Hemoglobin Concent 31.8 g/dL Red Cell Distribution Width 14.1 % Platelet Count 397 10^3/uL Mean Platelet Volume 9.6 fL Erythrocyte Sedimentation Rate 113 mm/hr Sodium Level 137 mmol/L Potassium Level 3.9 mmol/L Chloride Level 98.0 mmol/L Carbon Dioxide Level 29.8 mmol/L Anion Gap 13.1 Blood Urea Nitrogen 13 mg/dL Creatinine 0.83 mg/dL Estimated GFR () 80.4 BUN/Creatinine Ratio 15.0 Glucose Level 159 mg/dL Calcium Level 9.5 mg/dL Total Bilirubin 0.4 mg/dL Aspartate Amino Transf (AST/SGOT) 17 U/L Alanine Aminotransferase (ALT/SGPT) 10 U/L Alkaline Phosphatase 115 U/L C-Reactive Protein 11.66 mg/dL Total Protein 9.0 g/dL Albumin 3.3 g/dL Globulin 5.7 Current Medications Medications (Trade) Dose Ordered Sig/Tara PRN Reason Start Time Stop Time Status Last Admin Docusate Sodium (Colace) 100 mg DAILY 05/28/18 09:00 06/27/18 08:59 Famotidine (Pepcid) 20 mg DAILY 05/28/18 09:00 06/27/18 08:59 Tramadol HCl (Ultram) 50 mg Q6H PRN MILD PAIN 05/27/18 19:00 06/26/18 18:59 Tramadol HCl (Ultram) 100 mg Q6H PRN SEVERE PAIN 05/27/18 19:00 06/26/18 18:59 05/27/18 20:25 Vancomycin HCl 1 gm/Sodium Chloride 250 ml @ 175 mls/hr Q12H 05/27/18 19:00 05/28/18 20:26 05/27/18 20:26 Zolpidem Tartrate (Ambien) 5 mg HS PRN INSOMNIA 05/27/18 19:00 06/26/18 18:59 05/27/18 20:26 BELINDA MORAN MD May 31, 2018 09:33
--- NOTE | 2018-05-31 09:53 | DSH ---
DATE OF DISCHARGE: 05/31/2018 ADMITTING DIAGNOSIS: Infected right total knee arthroplasty. OTHER DIAGNOSES: Infected right total knee arthroplasty. OPERATIVE PROCEDURES: None. CONSULTATIONS: Dr. Arceo, the hospitalist. SURGICAL PROCEDURES: None. SUMMARY OF ADMISSION: The patient is a 77-year-old female who initially had right total knee arthroplasty performed about 2 years ago. About a year postoperatively, the knee got infected. It was treated with debridement and IV antibiotics. The patient has been very adamant in the past about not having the prosthesis removed. She preferred suppressive antibiotic treatment. The patient was clinically doing well until she stopped taking her p.o. clindamycin about 2 months ago. When she was seen in my office on the day of admission, she had redness and pain about the right knee. She denied any fever or chills. The patient was admitted at that time. Her white count was 12.6. Sed rate was 113. The patient's C-reactive protein was 11.6. The patient had a knee aspirate done. The aspirate grew out Staph epi that was sensitive to vancomycin as well as rifampin. The patient has been maintained on IV vancomycin 1 gram q. 12 hours and her redness and erythema have markedly improved. Her white count has returned to normal at 9.8. The sed rate is improving. Yesterday, the sed rate was 80 and the C-reactive protein was 9.7. Clinically, the patient has had stable vital signs throughout her hospital course with good urinary output. Her pain is improved. The patient continues to prefer conservative treatment if possible and her family agrees. The patient will be discharged today to [facility]. We will arrange for home IV antibiotics consisting of vancomycin 1 gram q. 12 hours for the next 6 weeks. She will be seen back in my office in 1 week. She can use a walker and weightbear as tolerated. Braydon Goldberg MD DR: AUNG/kael JOB# [id number]
--- NOTE | 2018-05-31 11:58 | DIREP ---
PROCEDURE:CHEST 1 VIEW COMPARISON:[facility], CR, XRAY CHEST 2 VWS, 12/18/2015, 07:46 AM. INDICATIONS:verify placement FINDINGS: LUNGS/PLEURA:A guidewire/central line through the left side, tip in the superior vena cava. No left-sided pneumothorax is seen. Atelectatic changes in the lung bases with the small bilateral effusions. VASCULATURE:Mild prominence of the vascularity, question CHF or fluid overload. CARDIAC:Mild cardiomegaly. Tortuous aorta. MEDIASTINUM:Normal. No visible mass or adenopathy. BONES:Normal. No fracture or visible bony lesion. OTHER:Negative. CONCLUSION:Left-sided guide wire/line, tip in the superior vena cava. No pneumothorax is seen. Mild cardiomegaly with bibasilar atelectasis and small bilateral effusions. Prominence of the vascularity, question mild fluid overload or mild CHF. Dictated by: Edi Messer MD on 05/31/2018 at 11:55 AM
[2018-05-31 12:12] VITALS: BP 138/66
--- NOTE | 2018-05-31 12:18 | NUR ---
DISCHARGE REPORT CALLED TO SEVERO CHOI AT [facility]. PT LEFT
== END 2018-05-31 12:00 | DRG 560 ==
LOC: MS 16:32 → EDPENDDISTM 05-31 12:15
PROVIDERS: ADMIT Orthopaedic Surgery; ATTEND Orthopaedic Surgery
PROC: 0S9C3ZX Drainage of Right Knee Joint, Percutaneous Approach, Diagnostic (ICD-10-PCS; 2018-05-27)
PROC: 02HV33Z Insertion of Infusion Device into Superior Vena Cava, Percutaneous Approach (ICD-10-PCS; principal; 2018-05-31)
DX: T84.53XA Infection and inflammatory reaction due to internal right knee prosthesis, initial encounter (principal); Z68.1 Body mass index [BMI] 19.9 or less, adult; F03.90 Unspecified dementia, unspecified severity, without behavioral disturbance, psychotic disturbance, mood disturbance, and anxiety; G47.00 Insomnia, unspecified; K21.9 Gastro-esophageal reflux disease without esophagitis; K59.00 Constipation, unspecified; R63.6 Underweight; Z96.651 Presence of right artificial knee joint; Y83.1 Surgical operation with implant of artificial internal device as the cause of abnormal reaction of the patient, or of later complication, without mention of misadventure at the time of the procedure; Z90.49 Acquired absence of other specified parts of digestive tract; Z90.710 Acquired absence of both cervix and uterus; Z83.3 Family history of diabetes mellitus; Y92.89 Other specified places as the place of occurrence of the external cause
CPT/HCPCS: 36415; 71045; 80053; 80202; 81000; 85025; 85027; 85651; 86140; 87040; 87070; 87075; 87077; 87086; 87186; J3490; J7050; J7120; A9270

== ENCOUNTER → 2018-05-31 | Outpatient (CLI) | payer MEDICARE | END | disposition home or self-care (01) | DRG 950 | LOC: OPMS 10:34 | PROVIDERS: ATTEND Orthopaedic Surgery | DX: Z45.2 Encounter for adjustment and management of vascular access device (principal) | CPT/HCPCS: 36569 ==

== ENCOUNTER → 2018-06-27 | Outpatient (CLI) | payer MEDICARE | END | disposition home or self-care (01) | LOC: NPLAB 14:22 | PROVIDERS: ATTEND Orthopaedic Surgery | DX: T84.53XD Infection and inflammatory reaction due to internal right knee prosthesis, subsequent encounter (principal); Y83.8 Other surgical procedures as the cause of abnormal reaction of the patient, or of later complication, without mention of misadventure at the time of the procedure | CPT/HCPCS: 87070; 87075 ==

== ENCOUNTER → 2019-08-13 | Outpatient (CLI) | payer MEDICARE, MEDICAID | END | disposition home or self-care (01) | LOC: LAB 18:03 | PROVIDERS: ATTEND Family Medicine | DX: J11.1 Influenza due to unidentified influenza virus with other respiratory manifestations (principal) | CPT/HCPCS: 87804 ==